=== PATIENT | male | born 1965 | race American Indian/Alaskan Native ===

== ENCOUNTER 2021-09-24 11:29 | Emergency (ER) | payer BC ==
[2021-09-24 11:39] VITALS: BP 163/91
--- NOTE | 2021-09-24 14:23 | Emergency Department Report ---
ED General Adult HPI - General Chief complaint: Medical Clearance Stated complaint: MED REFILL/DIABETIC Source: patient Mode of arrival: Ambulatory Limitations: No Limitations - History of Present Illness Initial comments: Patient is a 56-year-old -[place] male with a history of hypertension, hyperlipidemia and [id number] diabetes who presents to the ED for e valuation and refill of his medications that he ran out of about a week ago. Patient states that he is unable to get an appointment with his primary care physician until 2 weeks from today but stated that he is unable to wait until that time to get all his prescriptions in place. Patient denies headache, dizziness, syncope, chest pain, shortness of breath, nausea and vomiting, generalized weakness, change in vision or cough, fever and chills. MD Complaint: MEDICATION REFILLS -: Gradual, week(s) (1) Radiation: non-radiation Severity scale (0 -10): 0 Quality: dull Consistency: constant Improves with: none Worsens with: none Associated Symptoms: denies other symptoms. denies: chest pain, cough, diaphoresis, headaches, loss of appetite, malaise, nausea/vomiting, rash, seizure, shortness of breath, syncope, weakness Treatments Prior to Arrival: none - Related Data Previous Rx's Medication Instructions Recorded Last Taken Type glipiZIDE [glipiZIDE XL] 10 mg PO BID #60 tab.er.24 11/01/14 Unknown Rx Enalapril Maleate [Vasotec] 10 mg PO DAILY #30 tablet 09/16/15 Unknown Rx Metformin HCl [Glucophage] 1,000 mg PO BID #60 tablet 09/16/15 Unknown Rx Simvastatin (Nf) [Zocor TAB] 10 mg PO QHS #30 tablet 09/16/15 Unknown Rx glipiZIDE [glipiZIDE XL] 10 mg PO BID #60 tab.er.24 09/16/15 Unknown Rx Dapagliflozin Propanediol [Farxiga] 10 mg PO DAILY #60 tab 09/24/21 Unknown Rx Enalapril Maleate [Vasotec] 10 mg PO QDAY #90 tablet 09/24/21 Unknown Rx Glimepiride [Amaryl] 4 mg PO QAM #60 tablet 09/24/21 Unknown Rx Pravastatin [Pravachol] 20 mg PO QDAY #90 tablet 09/24/21 Unknown Rx metFORMIN [Glucophage] 1,000 mg PO BID #60 tablet 09/24/21 Unknown Rx Allergies Allergy/AdvReac Type Severity Reaction Status Date / Time No Known Allergies Allergy Verified 09/24/21 11:39 ED Review of Systems ROS: Stated complaint: MED REFILL/DIABETIC Other details as noted in HPI Constitutional: denies: chills, fever, weakness Eyes: denies: eye pain, eye discharge, vision change ENT: denies: ear pain, throat pain Respiratory: denies: cough, shortness of breath, wheezing Cardiovascular: denies: chest pain, palpitations Endocrine: no symptoms reported Gastrointestinal: denies: abdominal pain, nausea, vomiting, diarrhea Genitourinary: denies: urgency, dysuria Musculoskeletal: denies: back pain, joint swelling, arthralgia Skin: denies: rash, lesions Neurological: denies: headache, weakness, paresthesias Psychiatric: denies: anxiety, depression Hematological/Lymphatic: denies: easy bleeding, easy bruising ED Past Medical Hx - Past Medical History Hx Hypertension: Yes Hx Diabetes: Yes Additional medical history: Hypercholesterolemia - Surgical History Additional Surgical History: inguinal hernia repair - Social History Smoking Status: Never Smoker Substance Use Type: None - Medications Home Medications: Home Medications Medication Instructions Recorded Confirmed Last Taken Type glipiZIDE [glipiZIDE XL] 10 mg PO BID #60 tab.er.24 11/01/14 Unknown Rx Enalapril Maleate [Vasotec] 10 mg PO DAILY #30 tablet 09/16/15 Unknown Rx Metformin HCl [Glucophage] 1,000 mg PO BID #60 tablet 09/16/15 Unknown Rx Simvastatin (Nf) [Zocor TAB] 10 mg PO QHS #30 tablet 09/16/15 Unknown Rx glipiZIDE [glipiZIDE XL] 10 mg PO BID #60 tab.er.24 09/16/15 Unknown Rx Dapagliflozin Propanediol [Farxiga] 10 mg PO DAILY #60 tab 09/24/21 Unknown Rx Enalapril Maleate [Vasotec] 10 mg PO QDAY #90 tablet 09/24/21 Unknown Rx Glimepiride [Amaryl] 4 mg PO QAM #60 tablet 09/24/21 Unknown Rx Pravastatin [Pravachol] 20 mg PO QDAY #90 tablet 09/24/21 Unknown Rx metFORMIN [Glucophage] 1,000 mg PO BID #60 tablet 09/24/21 Unknown Rx ED Physical Exam - General Limitations: No Limitations General appearance: alert, in no apparent distress - Head Head exam: Present: atraumatic, normocephalic, normal inspection - Eye Eye exam: Present: normal appearance, PERRL, EOMI Pupils: Present: normal accommodation - ENT ENT exam: Present: normal exam, normal orophraynx, mucous membranes moist, TM's normal bilaterally, normal external ear exam - Neck Neck exam: Present: normal inspection, full ROM - Respiratory Respiratory exam: Present: normal lung sounds bilaterally. Absent: respiratory distress, wheezes, rhonchi, chest wall tenderness, accessory muscle use, decreased breath sounds, prolonged expiratory - Cardiovascular Cardiovascular Exam: Present: regular rate, normal rhythm, normal heart sounds. Absent: systolic murmur, diastolic murmur, rubs, gallop - GI/Abdominal GI/Abdominal exam: Present: soft, normal bowel sounds. Absent: tenderness, guarding, rebound, hyperactive bowel sounds, organomegaly, mass - Extremities Exam Extremities exam: Present: normal inspection, full ROM, normal capillary refill. Absent: tenderness - Back Exam Back exam: Present: normal inspection, full ROM. Absent: tenderness, CVA tenderness (R), CVA tenderness (L), muscle spasm, paraspinal tenderness, vertebral tenderness - Neurological Exam Neurological exam: Present: alert, oriented X3, CN II-XII intact, normal gait, reflexes normal - Psychiatric Psychiatric exam: Present: normal affect, normal mood - Skin Skin exam: Present: warm, dry, intact, normal color. Absent: rash ED Course Vital Signs 09/24/21 11:34 Temperature 98.6 F Pulse Rate 93 H Respiratory 18 Rate Blood Pressure 163/91 [Left] O2 Sat by Pulse 99 Oximetry ED Medical Decision Making - Medical Decision Making This is a 56-year-old -[place] male with a history of hypertension, hyperlipidemia and [id number] diabetes who presents to the ED for evaluation and refill of his medications that he ran out of about a week ago. Patient states that he is unable to get an appointment with his primary care physician until 2 weeks from today but stated that he is unable to wait until that time to get all his prescriptions in place. In the ED, patient is alert and oriented x3 and is not in any distress. Patient medications were refilled for him for 1 month and he was advised to keep the appointment with his primary care physician as previously scheduled. Patient was advised return to the ED immediately if symptoms get worse. - Differential Diagnosis Medication refill; chronic diabetes; hypertension; hyperlipidemia Critical care attestation.: If time is entered above; I have spent that time in minutes in the direct care of this critically ill patient, excluding procedure time. ED Disposition Clinical Impression: Encounter for medication refill Disposition: HOME / SELF CARE / HOMELESS Is pt being admited?: No Does the pt Need Aspirin: No Condition: Stable Instructions: Type 2 Diabetes Mellitus, Diagnosis, Adult, Hypertension, Adult, Preventing High Cholesterol Additional Instructions: Take medications as advised, drink plenty of fluids and follow-up with your primary care physician in 7 to 10 days for reevaluation. Return to the ED immediately if symptoms get worse. Prescriptions: Glimepiride [Amaryl] 4 mg PO QAM #60 tablet Dapagliflozin Propanediol [Farxiga] 10 mg PO DAILY #60 tab metFORMIN [Glucophage] 1,000 mg PO BID #60 tablet Pravastatin [Pravachol] 20 mg PO QDAY #90 tablet Enalapril Maleate [Vasotec] 10 mg PO QDAY #90 tablet Referrals: [facility] [Provider Group] - 3-5 Days Time of Disposition: 14:19 Print Language: FRENCH
== END 2021-09-24 15:11 | disposition home or self-care (01) ==
LOC: ED 11:29
DX: E11.9 Type 2 diabetes mellitus without complications (principal); I10 Essential (primary) hypertension; E78.5 Hyperlipidemia, unspecified; Z76.0 Encounter for issue of repeat prescription; Z79.899 Other long term (current) drug therapy
CPT/HCPCS: 82962; 99282